=== PATIENT | male | born 1960 | race Caucasian/White ===

== ENCOUNTER 2017-05-24 10:26 | Emergency (ER) | payer BC ==
--- NOTE | 2017-05-24 11:22 | EDM.PDOC ---
ED HPI GENERAL MEDICAL PROBLEM - General Chief Complaint: Gastrointestinal Problem Stated Complaint: STOMACH ISSUES Time Seen by Provider: 05/24/17 11:00 Source of Information: Reports: Patient, Family History Limitations: Reports: No Limitations - History of Present Illness INITIAL COMMENTS - FREE TEXT/NARRATIVE: 57-year-old male who is been having intermittent abdominal pain, bloating, irregular bowels, decreased appetite for the past several weeks but worse over the last 2-3 days. He had a normal colonoscopy 8 years ago. No fevers or chills , no radiation of pain to his back. No significant nausea or vomiting. The pain is worsening over his lower abdomen, he had an episode of dysuria and fever 1 week ago but that resolved. His is getting more concerned because it's very unusual for him to complain and he rarely gets sick. He had a recent increase in citalopram from 20 to 40 mg but no other new medications. He has not been traveling out of the country. Onset: Gradual Duration: Week(s): (Symptoms have been ongoing for several weeks) Severity: Moderate Associated Symptoms: Reports: No Other Symptoms Abdominal Pain Score (Numeric/FACES): 3 - Related Data Allergies Allergy/AdvReac Type Severity Reaction Status Date / Time No Known Allergies Allergy Verified 05/24/17 10:49 Home Meds: Home Meds Citalopram [Citalopram HBr] 40 mg PO DAILY 05/24/17 [History] Past Medical History HEENT History: Reports: Hard of Hearing, Impaired Vision Musculoskeletal History: Reports: Arthritis, Gout Psychiatric History: Reports: Anxiety - Infectious Disease History Infectious Disease History: Reports: Chicken Pox - Past Surgical History HEENT Surgical History: Reports: Other (See Below) Other HEENT Surgeries/Procedures: left ear surgery GI Surgical History: Reports: Colonoscopy Musculoskeletal Surgical History: Reports: Hip Replacement Social & Family History - Tobacco Use Smoking Status *Q: Never Smoker - Caffeine Use Caffeine Use: Reports: Soda - Recreational Drug Use Recreational Drug Use: No ED ROS GENERAL - Review of Systems Review Of Systems: See Below Constitutional: Reports: Fever (One week ago, none for the past 5-6 days), Malaise HEENT: Reports: No Symptoms Respiratory: Denies: Shortness of Breath, Cough Cardiovascular: Denies: Chest Pain Endocrine: Denies: Fatigue GI/Abdominal: Reports: Abdominal Pain, Constipation, Diarrhea. Denies: Nausea, Stool Incontinence, Vomiting : Reports: Dysuria (One week ago, resolved spontaneously) Musculoskeletal: Reports: No Symptoms Skin: Reports: No Symptoms Neurological: Reports: No Symptoms Psychiatric: Reports: Anxiety ED EXAM, GI/ABD - Physical Exam Exam: See Below Exam Limited By: No Limitations General Appearance: Alert, No Apparent Distress Eyes: Bilateral: Normal Appearance (Normal hydration, no jaundice) Respiratory/Chest: No Respiratory Distress, Lungs Clear Cardiovascular: Regular Rate, Rhythm GI/Abdominal Exam: Normal Bowel Sounds, Tender (Tender with mild guarding across the lower abdomen, both right and left lower quadrants) Extremities: Normal Inspection Neurological: Alert, Oriented Skin Exam: Warm, Dry Course - Vital Signs Last Recorded V/S: Last Vital Signs Temp 97.1 F 05/24/17 10:51 Pulse 63 05/24/17 14:39 Resp 18 05/24/17 14:39 BP 134/77 05/24/17 14:39 Pulse Ox 98 05/24/17 14:39 - Orders/Labs/Meds Orders: Active Orders 24 hr Category Date Time Status Abdomen Pelvis w Cont [CT] Stat Exams 05/24/17 12:03 Taken Labs: Laboratory Tests 05/24/17 05/24/17 05/24/17 Range/Units 11:19 11:29 11:29 WBC 10.8 (4.5-11.0) K/uL RBC 4.88 (4.30-5.90) M/uL Hgb 14.1 (12.0-15.0) g/dL Hct 40.2 (40.0-54.0) % MCV 82 (80-98) fL MCH 29 (27-31) pg MCHC 35 (32-36) % Plt Count 214 (150-400) K/uL Neut % (Auto) 74 H (36-66) % Lymph % (Auto) 15 L (24-44) % [place] % (Auto) 8 H (2-6) % Eos % (Auto) 1 L (2-4) % Baso % (Auto) 1 (0-1) % ESR 31 H (0-20) mm/hr Sodium 137 L (140-148) mmol/L Potassium 4.0 (3.6-5.2) mmol/L Chloride 102 (100-108) mmol/L Carbon Dioxide 29 (21-32) mmol/L Anion Gap 10.0 (5.0-14.0) mmol/L BUN 13 (7-18) mg/dL Creatinine 0.8 (0.8-1.3) mg/dL Est Cr Clr Drug Dosing 109.13 mL/min Estimated GFR (MDRD) > 60 (>60) Glucose 95 (74-106) mg/dL Calcium 8.4 L (8.5-10.1) mg/dL Total Bilirubin 0.6 (0.2-1.0) mg/dL AST 19 (15-37) U/L ALT 25 (12-78) U/L Alkaline Phosphatase 108 (46-116) U/L Total Protein 7.8 (6.4-8.2) g/dL Albumin 3.3 L (3.4-5.0) g/dL Globulin 4.5 H (2.3-3.5) g/dL Albumin/Globulin Ratio 0.7 L (1.2-2.2) Urine Color Yellow Urine Appearance Clear Urine pH 7.0 (4.5-8.0) Ur Specific [place] 1.005 L (1.008-1.030) Urine Protein Negative (NEGATIVE) mg/dL Urine Glucose (UA) Normal (NEGATIVE) mg/dL Urine Ketones Negative (NEGATIVE) mg/dL Urine Occult Blood Negative (NEGATIVE) Urine Nitrite Negative (NEGAITVE) Urine Bilirubin Negative (NEGATIVE) Urine Urobilinogen Normal (NORMAL) mg/dL Ur Leukocyte Esterase Negative (NEGATIVE) Urine RBC 0-5 (0-5) Urine WBC 0-5 (0-5) Ur Epithelial Cells Not seen Amorphous Sediment Not seen Urine Bacteria Not seen Urine Mucus Not seen Meds: Medications Discontinued Medications Generic Name Dose Route Start Last Admin Trade Name Freq PRN Reason Stop Dose Admin Sodium Chloride 85 mls @ 3.5 mls/sec 05/24/17 12:15 Normal Saline IV 05/24/17 23:00 ASDIRECTED MARQUEZ Iopamidol 150 ml 05/24/17 12:13 Isovue-300 (61%) IV 05/25/17 12:14 . DIRECTED PRN RADIOLOGY EXAM Metronidazole 500 mg 05/24/17 13:09 05/24/17 13:21 Metronidazole PO 05/24/17 13:10 500 mg ONETIME ONE Administration Trimethoprim/Sulfamethoxazole 1 tab 05/24/17 13:09 05/24/17 13:21 Septra Ds PO 05/24/17 13:10 1 tab ONETIME ONE Administration - Re-Assessments/Exams Free Text/Narrative Re-Assessment/Exam: 05/24/17 11:26 CBC, CMP, sedimentation rate and UA were obtained. CT the abdomen and pelvis will be obtained depending on urinary function, when labs return if normal we will use IV contrast. 05/24/17 14:47 Sedimentation rate was 31, white count was normal but CT scan showed diverticulitis with abscess formation and perforation. Abscess measured 4.5 cm, so after surgical and hospitalist consultation it was decided the patient should go where there is interventional radiology available. He was except at [facility] in [place] Departure - Departure Time of Disposition: 14:46 Disposition: DC/Tfer to Other 70 Condition: Fair Clinical Impression: Diverticulitis - Discharge Information Referrals: PCP,None [Primary Care Provider] - Forms: ED Department Discharge Care Plan Goals: Go directly to [facility] for admission. Avoid eating in route as you may need a procedure today. - My Orders Last 24 Hours: My Active Orders 05/24/17 12:03 Abdomen Pelvis w Cont [CT] Stat - Assessment/Plan Last 24 Hours: My Active Orders 05/24/17 12:03 Abdomen Pelvis w Cont [CT] Stat
[2017-05-24] MEDS ORDERED: Iopamidol 612 MG/ML 150 ML Bottle IV PRN (12:13)
[2017-05-24] MEDS ORDERED: Sulfamethoxazole/Trimethoprim 800-160 MG Tab PO ONE (13:09)
[2017-05-24] MEDS ORDERED: metroNIDAZOLE 250 MG Tab PO ONE (13:09)
[2017-05-24 14:40] VITALS: BP 134/77
--- NOTE | 2017-05-25 08:39 | ER ---
DATE OF SERVICE: 05/24/2017 HISTORY: This 57-year-old white male complains of several weeks of abdominal pain, bloating with decreased appetite. A couple of weeks ago, he had a fever, but this resolved. His pain is in his left lower quadrant and suprapubic area. He just has not been getting better, so his convinced him to come to the emergency room today. He is in good health and takes no medication. He has never had abdominal surgery. PHYSICAL EXAMINATION: GENERAL: A well-developed and well-nourished alert white male, in no apparent distress, who is laughing and pleasant to interact with. He denies any discomfort at the present time. VITAL SIGNS: He is afebrile. ABDOMEN: Soft. He does have some mild suprapubic and left lower quadrant abdominal tenderness. I cannot elicit any true peritoneal signs. LABORATORY DATA: Laboratory includes a white count of 10,800. CAT scan shows a 4.5 cm left lower quadrant abscess with diverticulitis. The abscess has air within it. It appears to be contained. There is also some fluid in his abdomen, but this appears to be a reaction to the inflammation and not a true diffuse perforation. IMPRESSION: 4.5 cm diverticular abscess. RECOMMENDATION: Refer to [facility] to see if they can put a drain in this and if not, IV antibiotics. Hopefully, this would resolve and if not, semi-urgent surgery. Otherwise, we will wait until this all resolves, proceed with a colonoscopy, and discuss, at that time, surgery for sigmoid resection. Manas Rizzo MD /[id number]
== END 2017-05-24 14:54 | disposition other institution (70) ==
LOC: JP.ED 10:26
DX: K57.80 Diverticulitis of intestine, part unspecified, with perforation and abscess without bleeding (principal)
CPT/HCPCS: 36415; 74177; 80053; 81001; 85025; 85651; 96360; 96361; 99284; A9270

== ENCOUNTER 2017-08-07 08:29 | Day surgery (SDC) | payer BC ==
[2017-08-07] MEDS ORDERED: Midazolam 1 MG/ML 2 ML SDV ONE (08:51)
[2017-08-07] MEDS ORDERED: fentaNYL 100 MCG/2 ML SDV ONE (08:51)
[2017-08-07] MEDS ORDERED: Propofol 200 MG/20 ML SDV ONE (08:51)
[2017-08-07] MEDS ORDERED: Lactated Ringers 1,000 ML IV SCH (09:00)
[2017-08-07 11:47] VITALS: BP 133/81
--- NOTE | 2017-08-07 12:02 | OR ---
DATE OF PROCEDURE: 08/07/2017 PREOPERATIVE DIAGNOSIS: Recent diverticulitis. 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 No evidence of diverticulosis. PROCEDURE PERFORMED: Colonoscopy to the cecum with biopsy of proximal right colon subcutaneous mass. SURGEON: Manas Rizzo MD. ANESTHESIA: IV anesthesia with monitored anesthesia care. INDICATION: This 57-year-old white male is referred for a colonoscopy. In May, he was in the hospital in [place] with acute diverticulitis, this has all resolved. He has no pain. He is referred now for a colonoscopy. He says his last colonoscopic exam was done about 7 years ago. I counseled him for the procedure, including the risks and alternatives, and he gave his informed consent to proceed. DESCRIPTION OF PROCEDURE: The patient was placed in the left lateral decubitus position. IV anesthesia was administered by the Anesthesia Service. Time-out was held. A rectal exam was performed, which was unremarkable. The flexible video Olympus colonoscope was introduced through his anus, up his rectum, and out his colon all the way to the cecum. En route, we saw no evidence of any diverticula. In the proximal right colon, we saw a submucosal mass. He did say that at his last colonoscopy, he was found to have what appeared to be a lipoma. We did biopsy this proximal right colon submucosal mass. Once the cecum was reached, the scope was slowly withdrawn, examining the mucosa throughout. No other mucosal abnormalities were noted. Once again, we saw no diverticula. The scope was retroflexed in the rectum with the distal rectum appearing unremarkable. The scope was straightened and removed. He tolerated the procedure well. Manas Rizzo MD /[id number] MTDD
== END 2017-08-07 12:00 | disposition home or self-care (01) ==
LOC: JP.SDS 08:29
PROVIDERS: ATTEND Surgery
DX: Z12.11 Encounter for screening for malignant neoplasm of colon (principal); D17.5 Benign lipomatous neoplasm of intra-abdominal organs
CPT/HCPCS: 45380; 88305; J2250; J2704; J3010; J7120